=== PATIENT | female | born 1950 | race Caucasian/White ===

== ENCOUNTER → 2018-11-14 | Outpatient (CLI) | payer MEDICAID, MEDICARE, OTHER ==
--- NOTE | 2018-11-15 10:56 | CRLMY ---
INDICATION: Bilateral screening mammogram, asymptomatic female age 68 been obtained using full-field digital technique. These mammographic images were interpreted with the benefit of computer-aided detection. COMPARISON FILM: 04/26/17, 11/30/11. FINDINGS: There are scattered fibroglandular densities. There are no masses or calcifications that are suspicious for malignancy. IMPRESSION: There is no radiographic evidence for malignancy. ASSESSMENT: BI-RADS Category 2: Benign RECOMMENDATION: Routine screening mammogram in 1 year. A lay language report of this examination will be provided to the patient. Breast Tomosynthesis was used in this interpretation. [email or web address] Dictated by: [email or web address] [email or web address] @ 11/15/2018 10:54:29 (Electronically Signed)
== END ==
LOC: JP.MAM 08:28
PROVIDERS: ATTEND Internal Medicine
DX: Z12.31 Encounter for screening mammogram for malignant neoplasm of breast (principal)
CPT/HCPCS: 77063; 77067